=== PATIENT | male | born 1990 | race African-American/Black ===

== ENCOUNTER 2024-07-08 15:15 | Emergency (ER) | payer OTHER, SELFPAY ==
--- NOTE | ~2024-07-08 | CT_ITS ---
EXAMINATION: CT PELVIS WITH CONTRAST CLINICAL INFORMATION: Perirectal abscess COMPARISON: None available. TECHNIQUE: Helical scanning was performed with submillimeter collimation through the pelvis with the use of oral contrast and during bolus intravenous injection of 85 mL of Omnipaque 350 intravenous contrast. Sagittal and coronal multiplanar 2-D reconstructions were obtained. This CT examination was performed using dose optimization techniques as appropriate, variously including the following: *Automated exposure control *Adjustment of mA and/or kV according to patient size (this includes techniques or standardized protocols for targeted exams where dose is matched to indication/reason for exam; i.e. extremities or head) *Use of iterative reconstruction technique DLP: 424 mGy-cm FINDINGS: PELVIS: Small fluid collection in the left rectal wall measuring 1.9 x 1 cm. No surrounding fat stranding. Otherwise the visualized pelvic bowel is unremarkable. The bladder is partially decompressed. OSSEOUS STRUCTURES: Unremarkable CT/CT pelvis w IV con IMPRESSION: There appears to be a 1.9 x 1 cm fluid collection in the left rectal wall, concerning for abscess. Electronically signed by: Pete Carcamo MD 07/08/2024 06:16 PM EDT
[2024-07-08 16:00] VITALS: BP 120/78; PULSE 68; RESP 16; TEMP 36.4; O2SAT 100; BMI 29.2
--- NOTE | 2024-07-08 16:03 | ED.GENADULT ---
HPI - General Adult General Chief complaint: Skin/Abscess/Foreign Body Stated complaint: Rectum pain Time Seen by Provider: 07/08/24 16:22 Source: patient, RN notes reviewed and old records reviewed Mode of arrival: ambulatory History of Present Illness ED Provider: Mandy Figueroa PA-C HPI narrative: 33-year-old male with no significant past medical history presenting to the ED complaining rectal pain x 6 days. States noted inflamed area to left buttock, worsening. Reports increasing discomfort with BMs. Denies active drainage/pus or bloody discharge. Denies fever, chills, abdominal pain, nausea/vomiting. Denies similar symptoms in the past. Related Data Previous Rx's ?Medication ?Instructions ?Recorded amoxicillin 875 mg-potassium 1 tab PO BID #14 tabs 07/08/24 clavulanate 125 mg tablet methocarbamol 750 mg tablet 750 mg PO Q8H PRN pain #12 tabs 07/08/24 Allergies Allergy/AdvReac Type Severity Reaction Status Date / Time No Known Allergies Allergy Verified 07/08/24 16:03 [No Known Allergies*] Review of Systems Review of Systems: Yes all other systems are reviewed and are negative Constitutional: Constitutional: Reports as per HPI [facility] Past Medical History Attestation statement: The following information was validated with the patient. Source: old records reviewed Social History Social History Advance Directives: No Advance Directives Information Provided: Yes Do you have a plan to hurt others: No Plan Physical Exam ED Vital Signs: Vital Signs - 24 hr 07/08/24 16:00 07/08/24 18:07 Temperature 97.6 F 97.8 F Pulse Rate 68 71 Respiratory Rate 16 16 Blood Pressure 120/78 121/73 Pulse Oximetry 100 100 Oxygen Delivery Method Room Air Room Air BMI result Body Mass Index 29.2 Const General: cooperative, healthy appearing and no acute distress Orientation/consciousness: patient oriented x3 Limitations: no limitations HENMT Head: Yes normal to inspection and Yes atraumatic Ears: hearing grossly normal bilaterally General nose exam: Normal external nose present Face and sinus: Yes normal facial exam Eyes General: appearance normal, both eyes and all related structures EOM: EOMs intact bilaterally Neck Neck: Yes normal visual inspection and Yes no meningeal signs Resp Effort & Inspection: normal respiratory effort and no respiratory distress Auscultation: clear to auscultation bilaterally Cardio Rate: regular rate Heart sounds: S1 normal heart sound present and S2 normal heart sound present GI Other: + perirectal abscess appreciated at 09:00 o'clock position with extension past sphincter. Tender to palpation. + fluctuant. No overlying cellulitis. No induration Inspection: Yes normal to inspection Palpation (GI): Soft to palpation, nontender, no guarding and not rigid Skin Rashes: no rashes Wounds: no wounds Neuro General: patient oriented x3, tone normal and no meningeal signs Cranial nerves: Yes CN's II-XII intact bilaterally Gait exam (Neuro): Normal gait present Extrem General: Yes normal to inspection Course Course Course Narrative: This is a rapid medical exam. The patient is a 33-year-old otherwise healthy male who presents with rectal pain x6 days. Pain primarily over left side of rectum with radiation internally. Denies purulent or bloody discharge from the rectum, no fevers. Clearly deferring rectal exam as we are out in triage. We will be screening basic labs, I have received the patient requiring a CT scan, he is stable and can return to the emergency department pending his full assessment. -1735--labs reassuring. No leukocytosis 1838--CT pelvis w IV con IMPRESSION: There appears to be a 1.9 x 1 cm fluid collection in the left rectal wall, concerning for abscess. > will consult General surgery Dr. Hopson > will see patient in the ED -1900-- ED care transferred to [facility] pending surgery eval & reccommendations Reevaluation(s) Reevaluation #1: Tien Rosas PA-C have accepted care of the patient and signed out pending surgical consult and final disposition Reevaluation #2: I spoke with Dr. Hopson...... She recommends conservative management at this time. The patient should be instructed to do Sitz baths 3 times a day. We will be placing the patient on Augmentin 875 mg b.i.d. x7 days. We will provide him with her office contact, he should be following up this Sunday. I discussed with him the need for pain medication, I relayed to him that narcotics can be constipating, which could exacerbate his current rectal pain. I suggested the use of a muscle relaxant, which could offer some degree of benefit, he is in agreement with trying this medication. Time: 19:50 Medications Administered Discontinued Medications Generic Name Dose Route Start Last Admin Trade Name Diana PRN Reason Stop Dose Admin Piperacillin Sod/Tazobactam 50 mls @ 100 mls/hr 07/08/24 16:58 07/08/24 18:03 Sod 3.375 gm/ Sodium Chloride IV 07/08/24 17:27 Infused ONCE ONE Infusion Sodium Chloride 1,000 mls @ 999 mls/hr 07/08/24 17:00 07/08/24 18:35 Ns IV 07/08/24 18:00 Infused .Q1H1M THU Infusion Iohexol 85 ml 07/08/24 17:19 07/08/24 17:19 Iohexol 350 Mg/Ml 100 Ml Infus..Btl IV 07/08/24 17:20 85 ml ONCE ONE Administration Lidocaine HCl 5 ml 07/08/24 18:49 07/08/24 19:49 Lidocaine Hcl 1 % Mpf 5 Ml Vial INFILTRATI 07/08/24 18:50 Not Given ONCE ONE Medical Decision Making Medical Decision Making MDM Narrative: 33-year-old male with no significant past medical history presenting to the ED complaining rectal pain x 6 days. On exam vital signs stable, NAD, nontoxic appearing, physical exam as noted above with appreciable perirectal abscess at 09:00 o'clock position with tracking past sphincter. Concern for deeper abscess/infection vs cellulitis. No evidence of Dewey's gangrene. Plan: Labs, UA, CT, IV antibiotics Please refer to course for remaining clinical decision making, interpretation of labs/imaging results, and discussions with consultants and/or family members. Differential Diagnosis Differential Diagnoses: The differential diagnosis associated with the presentation includes As above Admission/Observation Consideration of admission/observation: Escalation of care including admission/observation considered Consult Healthcare Provider Management of the patient was discussed with: Teacher Physically Impaired Lab Data [facility] Lab Attestation statement: I reviewed the patient's lab results. 07/08/24 16:19 07/08/24 16:19 Labs: Lab Results 07/08/24 07/08/24 Range/Units 16:19 19:20 WBC 5.3 (4.8-10.8) X10*3/uL RBC 4.94 (4.60-5.80) X10*6/uL Hgb 13.2 L (14.0-18.0) g/dl Hct 41.3 L (42.0-52.0) % MCV 83.6 (80.0-98.0) fL MCH 26.7 L (27.0-33.0) pg MCHC 32.0 (31.0-36.0) g/dl RDW 13.6 (11.0-16.0) % Plt Count 299 (160-400) X10*3/uL MPV 9.0 L (9.4-12.4) fL Immature Gran % (Auto) 0.2 (0.0-0.4) % Neut % (Auto) 59.4 (45-73) % Lymph % (Auto) 27.2 (20-40) % [place] % (Auto) 12.0 H (2-11) % Eos % (Auto) 0.4 (0-4) % Baso % (Auto) 0.8 (0-2) % Lymph # (Auto) 1.4 (1.2-4.9) X10*3/uL [place] # (Auto) 0.6 (0.1-1.2) X10*3/uL Eos # (Auto) 0.0 (0.0-0.4) X10*3/uL Baso # (Auto) 0.0 (0.0-0.2) X10*3/uL Abs Immat Gran (auto) 0.01 (0.00-0.03) X10*3/uL Absolute Neuts (auto) 3.1 (2.0-8.3) x10*3/uL Absolute Nucleated RBC 0.000 (0.0-0.012) X10*3/uL Nucleated RBC % (auto) 0.0 (0.0-0.2) /100WBC ESR 2 (0-15) MM/HR Sodium 140 (135-145) mmol/L Potassium 3.7 (3.3-5.1) mmol/L Chloride 105 (96-108) mmol/L Carbon Dioxide 27 (22-29) mmol/L Anion Gap 12 (12-20) BUN 12 (9-16) mg/dL Creatinine 1.35 (0.5-1.4) mg/dL Estim Creat Clear Calc 95.0 Estimated GFR > 60 Random Glucose 155 H (60-115) mg/dL Calcium 9.2 (8.4-10.2) mg/dL Magnesium 2.1 (1.6-2.6) mg/dL Total Bilirubin 0.6 (0.0-1.0) mg/dL AST 37 (5-37) U/L ALT 33 (0-40) U/L Alkaline Phosphatase 55 (39-117) U/L C-Reactive Protein 0.28 (< or = 0.50) mg/dL Total Protein 6.9 (6.5-8.0) g/dL Albumin 4.0 (3.5-5.0) g/dL Urine Color Yellow Urine Appearance Clear Urine pH 7.0 (5.0-9.0) Ur Specific [place] >= 1.030 H (1.005-1.025) Urine Protein Negative (Neg-Trace) mg/dL Urine Glucose (UA) Negative (Negative) mg/dL Urine Ketones Negative (Negative) mg/dL Urine Blood Negative (Negative) Urine Nitrite Negative (Negative) Ur Leukocyte Esterase Negative (Negative) Independent Interpretation I performed an independent interpretation of an: CT Scan Radiology Impression Discussion of test interpretation with radiology: I have reviewed the radiologist's reading. External Record Review External record reviewed: Inpatient record, Office record, Outpatient record, Prior outpatient labs, Prior outpatient radiology, Primary care record and Outside ED record Tests considered The following testing was considered but not selected: As above Prescription Management I considered prescription management with: Pain Medication and Antibiotic Discharge Plan Discharge Clinical Impression: Perirectal abscess Patient Disposition: Home, Self-Care Instructions: Rectal Abscess (ED) Additional Instructions: See home care instructions, which would include implementing Sitz baths 3 times a day. Take the antibiotic, the Augmentin, as directed. Use the methocarbamol, this is a muscle relaxant, to help ease your discomfort. To note this medication will cause drowsiness, you should not drive or operate machinery while taking the medication. You need to follow up with Dr. Hopson this Sunday, call tomorrow morning to schedule an appointment. I have provided you with her contact in your discharge paperwork. Prescriptions: New amoxicillin-pot clavulanate 875-125 mg tablet 1 tab PO BID Qty: 14 0RF methocarbamol 750 mg tablet 750 mg PO Q8H PRN (Reason: pain) Qty: 12 0RF Referrals: [facility] [place] General Surgeons [Provider Group] (Call the office tomorrow morning to schedule your appointment with Dr. Hopson, for Wednesday 07/11) Print Language: Cook Islander
[2024-07-08 16:23] LABS: MANUAL DIFF FLAG NO
[2024-07-08 16:36] LABS: Basophils Percent Auto 0.8 % (0-2); Eosinophils Percent Auto 0.4 % (0-4); Hematocrit 41.3 % (42.0-52.0); Hemoglobin 13.2 g/dl (14.0-18.0); Imm Gran Abs Auto 0.01 X10*3/uL (0.00-0.03); Imm Gran Pct Auto 0.2 % (0.0-0.4); Lymphocytes Absolute Auto 1.4 X10*3/uL (1.2-4.9); Lymphocytes Percent Auto 27.2 % (20-40); Mean Corpuscular Hemoglobin 26.7 pg (27.0-33.0); Mean Corpuscular Volume 83.6 fL (80.0-98.0); Monocytes Absolute Auto 0.6 X10*3/uL (0.1-1.2); Neutrophils Absolute Auto 3.1 x10*3/uL (2.0-8.3); Neutrophils Percent Auto 59.4 % (45-73); Platelet Count 299 X10*3/uL (160-400); Red Blood Count 4.94 X10*6/uL (4.60-5.80); Red Cell Distribution Width 13.6 % (11.0-16.0); White Blood Count 5.3 X10*3/uL (4.8-10.8)
[2024-07-08 16:51] LABS: Alanine Aminotransferase 33 U/L (0-40); Alkaline Phosphatase 55 U/L (39-117); Anion Gap 12 (12-20); Aspartate Amino Transferase 37 U/L (5-37); Bilirubin Total 0.6 mg/dL (0.0-1.0); Blood Urea Nitrogen 12 mg/dL (9-16); Calcium 9.2 mg/dL (8.4-10.2); Carbon Dioxide 27 mmol/L (22-29); Chloride 105 mmol/L (96-108); Estimated Glomerular Filt Rate > 60; Glucose Random 155 mg/dL (60-115); Magnesium 2.1 mg/dL (1.6-2.6); Potassium 3.7 mmol/L (3.3-5.1); Sodium 140 mmol/L (135-145); Total Protein 6.9 g/dL (6.5-8.0)
[2024-07-08] MEDS: iohexoL 350 MG/ML 100 ML INFUS..BTL 85 ML IV (17:19)
[2024-07-08] MEDS: Piperacillin Sodium/Tazobactam 3.375 GM in 0.9 % Sodium Chloride 50 ML IV (17:20)
[2024-07-08] MEDS: 0.9 % Sodium Chloride 1,000 ML 999 ML IV (17:21)
[2024-07-08 17:22] LABS: C Reactive Protein 0.28 mg/dL (< or = 0.50)
[2024-07-08 17:52] LABS: Erythrocyte Sedimentation Rate 2 MM/HR (0-15)
[2024-07-08 18:07] VITALS: BP 121/73; PULSE 71; RESP 16; TEMP 36.6; O2SAT 100
[2024-07-08 19:25] LABS: Appearance Urine Clear; Color Urine Yellow; Glucose Urine UA Negative (Negative); Leukocyte Esterase Urine Negative (Negative); Nitrite Urine Negative (Negative); Specific Gravity - Urine >= 1.030 (1.005-1.025); Urine Blood Negative (Negative); Urine Ketones Negative (Negative); Urine Protein Negative (Neg-Trace)
--- NOTE | 2024-07-08 19:49 | PM.CNGS ---
History of Present Illness Consult details Consult date: 07/08/24 Narrative: 33 year old male with rectal pain for the last three days and worsening so came to the ER - no fevers or chills still able to pass gas and poop and ran 5 miles yesterday. Here pt has a tender area just inside edge of ano rectal left side and tender mildly fluctuant - ct shows a 1.9x1 cm fluid collection PMFSH Social History Social History Advance Directives: No Advance Directives Information Provided: Yes Do you have a plan to hurt others: No Plan Meds Allergies Allergy/AdvReac Type Severity Reaction Status Date / Time No Known Allergies Allergy Verified 07/08/24 16:03 [No Known Allergies*] Physical Exam Vital Signs: Vital Signs: Last Vital Signs Temp 97.8 F 07/08/24 18:07 Pulse 71 07/08/24 18:07 Resp 16 07/08/24 18:07 BP 121/73 07/08/24 18:07 Pulse Ox 100 07/08/24 18:07 O2 Del Method Room Air 07/08/24 18:07 BMI result Body Mass Index 29.2 GI: Other: rectal exam left side anal rectal spot with some mild firmness and tenderness Results Labs 07/08/24 16:19 07/08/24 16:19 Labs: Abnormal lab results 07/08/24 07/08/24 Range/Units 16:19 19:20 Hgb 13.2 L (14.0-18.0) g/dl Hct 41.3 L (42.0-52.0) % MCH 26.7 L (27.0-33.0) pg MPV 9.0 L (9.4-12.4) fL [place] % (Auto) 12.0 H (2-11) % Random Glucose 155 H (60-115) mg/dL Ur Specific [place] >= 1.030 H (1.005-1.025) Short CBC 07/08/24 Range/Units 16:19 WBC 5.3 (4.8-10.8) X10*3/uL Hgb 13.2 L (14.0-18.0) g/dl Hct 41.3 L (42.0-52.0) % Plt Count 299 (160-400) X10*3/uL BMP 07/08/24 16:19 Sodium 140 Potassium 3.7 Chloride 105 Carbon Dioxide 27 BUN 12 Creatinine 1.35 Calcium 9.2 Liver Function 07/08/24 Range/Units 16:19 Total Bilirubin 0.6 (0.0-1.0) mg/dL AST 37 (5-37) U/L ALT 33 (0-40) U/L Alkaline Phosphatase 55 (39-117) U/L Albumin 4.0 (3.5-5.0) g/dL Urine 07/08/24 Range/Units 19:20 Urine Color Yellow Urine Appearance Clear Urine pH 7.0 (5.0-9.0) Ur Specific [place] >= 1.030 H (1.005-1.025) Urine Protein Negative (Neg-Trace) mg/dL Urine Glucose (UA) Negative (Negative) mg/dL All other labs normal. Imaging Abdomen CT scan report/results: report reviewed and image reviewed CT scan - pelvis: report reviewed and image reviewed Additional studies: f Service: 07/08/24 Procedure(s): CT pelvis w IV con Accession Number(s): [id number] cc: Physician,None ; Mandy Figueroa~ EXAMINATION: CT PELVIS WITH CONTRAST CLINICAL INFORMATION: Perirectal abscess COMPARISON: None available. TECHNIQUE: Helical scanning was performed with submillimeter collimation through the pelvis with the use of oral contrast and during bolus intravenous injection of 85 mL of Omnipaque 350 intravenous contrast. Sagittal and coronal multiplanar 2-D reconstructions were obtained. This CT examination was performed using dose optimization techniques as appropriate, variously including the following: *Automated exposure control *Adjustment of mA and/or kV according to patient size (this includes techniques or standardized protocols for targeted exams where dose is matched to indication/reason for exam; i.e. extremities or head) *Use of iterative reconstruction technique DLP: 424 mGy-cm FINDINGS: PELVIS: Small fluid collection in the left rectal wall measuring 1.9 x 1 cm. No surrounding fat stranding. Otherwise the visualized pelvic bowel is unremarkable. The bladder is partially decompressed. OSSEOUS STRUCTURES: Unremarkable CT/CT pelvis w IV con IMPRESSION: There appears to be a 1.9 x 1 cm fluid collection in the left rectal wall, concerning for abscess. Electronically signed by: Pete Carcamo MD 07/08/2024 06:16 PM EDT RP Assessment and Plan (1) Perirectal abscess: Status: Acute Plan 33 yo male with small perirectal abscess doing ok - i think conservative care will be fine - will give 7 days augmentin and have him follow up in surgery office. if not improving then can do I&D but most likely will improve with antibx. Procedures Date of Service Date of Service: 07/08/24
[2024-07-08 20:00] VITALS: BP 105/62; PULSE 63; RESP 16; TEMP 36.8; O2SAT 100
[2024-07-08] MEDS: methocarbamoL 750 MG TABLET PO (20:08)
[2024-07-08 20:11] VITALS: BP 105/62; PULSE 63; RESP 16; TEMP 36.8; O2SAT 100
== END 2024-07-08 20:12 | disposition home or self-care (01) ==
PROVIDERS: Physician Assistant; Physician Assistant Medical; Emergency Provider Emergency Medicine Emergency Medical Services
DX: K61.1 Rectal abscess (principal); K62.89 Other specified diseases of anus and rectum; R10.2 Pelvic and perineal pain; Z79.899 Other long term (current) drug therapy
CPT/HCPCS: 36415; 72193; 80053; 81003; 83735; 85025; 85652; 86140; 96365; 99284; J2543; Q9967

== ENCOUNTER → 2024-07-08 16:20 | Outpatient (BNV) | payer OTHER, SELFPAY | PROVIDERS: Emergency Provider Emergency Medicine Emergency Medical Services; Visit Provider Surgery | DX: K61.1 Rectal abscess (principal) | CPT/HCPCS: 99283 ==

== ENCOUNTER 2024-07-10 15:03 | Outpatient (REF) | payer OTHER, SELFPAY | END 2024-07-10 15:04 | disposition home or self-care (01) | LOC: HO.LNP 15:03 | PROVIDERS: Visit Provider Surgery | DX: K61.1 Rectal abscess (principal) | CPT/HCPCS: 46050 ==

== ENCOUNTER 2024-07-10 15:03 | Outpatient (AMB) | payer OTHER, SELFPAY ==
--- NOTE | 2024-07-10 15:24 | MHC.OFFVIS ---
Vital Signs 07/10/24 15:29 Height 6 ft Weight 218 lb BMI 29.6 BP 126/66 Blood Pressure Location Lt brachial Position Sitting Pulse 67 Intake Visit Reasons: Perirectal Abscess Intake Note: Patient is seen in office for evaluation of a perirectal abscess. 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 He was seen in the emergency department 2 days ago and the determination made to place him on antibiotics rather than incision and drainage. He reports the pain is continuing without improvement despite being on antibiotics. He denies any discharge per rectum. He denies fever or chills. [facility] Family History Paternal Grandmother Cancer of unknown origin Social History Alcohol intake: never Patient Tobacco Use Status: Never used Tobacco Review of Systems Const All systems reviewed & are unremarkable except as noted in HPI and below Physical Exam Vital Signs: Last Vital Signs Pulse 67 07/10/24 15:29 BP 126/66 07/10/24 15:29 BMI result Body Mass Index 29.6 Const General: no acute distress Nutritional Appearance: well nourished Orientation/consciousness: patient oriented x3 Limitations: no limitations HEENT Head: Yes normocephalic and Yes atraumatic Resp Effort & Inspection: normal respiratory effort, no audible wheezes, no cough and no respiratory distress GI Other: Perirectal abscess noted on the left lateral perianal wall. Site is a proximally 2 cm in diameter, exquisitely tender to palpation. Inspection: Yes normal to inspection Palpation (GI): Soft to palpation Skin Other: Warm, dry Neuro General: patient oriented x3 Office Procedures I&D Drain Details: Preoperative diagnosis: Perirectal abscess Postoperative diagnosis: Same Procedure: Incision and drainage of perirectal abscess Surgeon: Andrey Mary MD Passenger Representative: None Anesthesia: Local 1% lidocaine with epinephrine Indications for procedure: Left perianal rectal abscess Operative findings: Large abscess Specimen: Culture Estimated blood loss: None Complications: None Procedure details: Patient was placed in a left lateral decubitus position. The site of surgery was confirmed by the patient. After assuring informed consent the skin was prepped with Betadine and draped in a sterile fashion. Local anesthesia was then infiltrated over the abscess. An 11 blade was then used to incise the abscess. A large collection was immediately drained. No attempt was made at placing packing due to the discomfort. A wound culture was obtained. Sterile dressings were then applied. The patient tolerated the procedure very well and was discharged home in stable condition. 84857-Rpfybhew of Skin Abscess, complex All charges added?: Procedure code (CPT) selection complete Assessment & Plan Assessment & Plan (1) Perirectal abscess: Code(s): K61.1 - Rectal abscess Category: Medical Plan 33-year-old male patient presenting with a perirectal abscess. This was incised and drained in the office today. He was instructed on local wound care and will return in 1 week for wound check. Continue the antibiotics as previously prescribed. Orders: Orders Routine Culture w Gram Stain Today K61.1 - Rectal abscess Coding Level of Care Code New Pt Level 4 (45115) Diagnoses Perirectal abscess K61.1 CPT Codes I&D Drain - Drain 2: 15542-Summfjib of Skin Abscess, complex ([id number])
[2024-07-10 15:29] VITALS: BP 126/66; PULSE 67; BMI 29.6
== END 2024-07-10 15:59 | disposition home or self-care (01) ==
PROVIDERS: Visit Provider Surgery
DX: K61.1 Rectal abscess (principal); K61.0 Anal abscess
CPT/HCPCS: 46050; 99204

== ENCOUNTER 2024-07-17 14:56 | Outpatient (AMB) | payer OTHER, SELFPAY ==
--- NOTE | 2024-07-17 15:05 | A.OFFVIS_ITS ---
Vital Signs 07/17/24 15:12 Height 6 ft Weight 218 lb BMI 29.6 BP 121/71 Blood Pressure Location Lt brachial Position Sitting Pulse 51 Intake Visit Reasons: Perirectal Abscess Intake Note: Pt c/o: had some discharge 2 days post I&D, still feels the incision and a small lump in the area, denies pain Oil Field Operator Required: No Accompanied by: Family/Other Allergies No Known Allergies [No Known Allergies*] Allergy (Verified 07/10/24 15:28) HPI Comments Details: Mamadou returns 1 week following incision and drainage of a perirectal abscess of the left perianal wall. He feels much improved with no further pain or discharge. His bowels are normal and he denies any new symptoms PFSH Family History Paternal Grandmother Cancer of unknown origin Social History Alcohol intake: never Patient Tobacco Use Status: Never used Tobacco Physical Exam Const General: comfortable Nutritional Appearance: well nourished Orientation/consciousness: patient oriented x3 Resp Effort & Inspection: normal respiratory effort GI Other: Perianal skin is now nontender. Healing ridge is noted at the site of incision and drainage. No palpable fluctuance and no erythema appreciated. Skin Other: Warm, dry, no rash Neuro General: patient oriented x3 Assessment & Plan Assessment & Plan (1) Perirectal abscess: Code(s): K61.1 - Rectal abscess Category: Medical Plan Patient returns 1 week following incision and drainage of a perirectal abscess. He tolerated the procedure well and the wounds are healing nicely. He should continue to keep the area clean with warm soaks/Sitz baths. He should follow up as needed. Coding Level of Care Code Global (93386) Diagnoses Perirectal abscess K61.1
[2024-07-17 15:12] VITALS: BP 121/71; PULSE 51; BMI 29.6
== END 2024-07-17 15:16 | disposition home or self-care (01) ==
PROVIDERS: Visit Provider Surgery
DX: K61.1 Rectal abscess (principal)
CPT/HCPCS: 99024

== ENCOUNTER → 2024-07-17 14:56 | Outpatient (BNVA) | payer OTHER, SELFPAY | PROVIDERS: Visit Provider Surgery | DX: K61.1 Rectal abscess (principal) ==